=== PATIENT | female | born 1990 | race Two or more races ===

== ENCOUNTER 2021-11-17 18:27 | Emergency (ER) | payer SELFPAY ==
[~2021-11-17] VITALS: Ht 154.9 cm; Wt 78.9 kg
[2021-11-17 18:56] VITALS: BP 129/88
--- NOTE | 2021-11-17 19:00 | NUR ---
PT BIBSELF FROM HOME C/O COUGH WITH SORE THROAT SINCE 1ST WK OF OCT PER PT. PT A/OX4. TOLERATING R/A WELL WITH NO SOB.
--- NOTE | 2021-11-17 20:06 | NUR ---
EXCHANGE CONSULTANT AT PT'S BEDSIDE
[2021-11-17] MEDS ORDERED: ALBU18HF2 INH (21:39)
[2021-11-17] MEDS ORDERED: AZIT250T13 PO (21:40)
--- NOTE | 2021-11-17 21:44 | NUR ---
Patient discharged to home in stable condition. Written and verbal after care instructions given. Patient verbalizes understanding of instruction.
== END 2021-11-17 21:44 | disposition home or self-care (01) ==
LOC: ER 18:30
DX: J42 Unspecified chronic bronchitis (principal); J45.909 Unspecified asthma, uncomplicated; Z79.899 Other long term (current) drug therapy
CPT/HCPCS: 71045-TC

== ENCOUNTER 2021-12-23 13:14 | Emergency (ER) | payer SELFPAY ==
[~2021-12-23] VITALS: Ht 162.6 cm; Wt 74.8 kg
[~2021-12-23 13:14] MED LIST: ALBU18HF2 INH; AZIT250T13 PO
[2021-12-23 13:22] VITALS: BP 143/81
[2021-12-23] MEDS ORDERED: PRED50TA PO (13:39)
== END 2021-12-23 13:46 | disposition home or self-care (01) ==
LOC: ER 13:16
DX: J45.909 Unspecified asthma, uncomplicated (principal); J06.9 Acute upper respiratory infection, unspecified